=== PATIENT | female | born 1945 | race Caucasian/White ===

== ENCOUNTER 2016-06-10 07:50 | Day surgery (SDC) | payer MEDICARE, OTHER ==
[~2016-06-10] VITALS: Ht 170.2 cm; Wt 84.8 kg
[~2016-06-10 07:50] MED LIST: CORDARONE200 MG PO; ELIQUIS5 MG PO; LOPRESSOR50 MG PO; OS-CAL 500+D31 EAC1 CHEW; PRILOSEC20 MG PO; TESSALON PERLE100 M1 PO
== END 2016-06-10 10:58 | disposition short-term general hospital (02) ==
LOC: SURGOP 07:50
PROC: 0DJD8ZZ Inspection of Lower Intestinal Tract, Via Natural or Artificial Opening Endoscopic (ICD-10-PCS; principal; 2016-06-10)
DX: Z12.11 Encounter for screening for malignant neoplasm of colon (principal); E66.9 Obesity, unspecified; K57.30 Diverticulosis of large intestine without perforation or abscess without bleeding; Z98.51 Tubal ligation status; Z90.710 Acquired absence of both cervix and uterus; Z79.02 Long term (current) use of antithrombotics/antiplatelets; Z79.52 Long term (current) use of systemic steroids; Z79.899 Other long term (current) drug therapy; Z68.30 Body mass index [BMI] 30.0-30.9, adult
CPT/HCPCS: 00810; G0121